=== PATIENT | female | born 1995 | race Caucasian/White ===

== ENCOUNTER 2017-06-22 13:42 | Emergency (ER) | payer BC, OTHER ==
[2017-06-22 14:45] VITALS: BP 128/73
[2017-06-22] MEDS ORDERED: predniSONE TAB* 20 MG PO ONE (15:41)
--- NOTE | 2017-06-22 15:43 | UC ---
Skin Complaint HPI - HPI Summary HPI Summary: 22 female presents to with complaints of breaking out in hives over chest, neck trunk last night and again this morning. Patient states she took Benadryl last night and again this morning after breaking out in hives and it did resolve. States she was also very itchy. Denies chest tightness and trouble breathing. Denies new soaps, lotions, foods, medications and no new immunizations. Patient does not know what possibly could have caused allergic reaction. Denies known bug bites. Patient states she has had recent random hives /allergic reaction to random foods and pets that she has not had allergies to in the past. Denies being around any new animals. No other complaints. Urticaria is currently gone, only mild redness and scratch evans. No other complaints. Denies PMHx. - History of Current Complaint Chief Complaint: Ras Time Seen by Provider: 06/22/17 15:03 Stated Complaint: HIVES Hx Obtained From: Patient Hx Last Menstrual Period: "I don't technically get on the control that I' m on." ?: No Onset/Duration: Sudden Onset, Resolved Skin Exposure Onset/Duration: Hours Ago Onset Severity: Moderate Current Severity: None Pain Intensity: 0 Pain Scale Used: 0-10 Numeric Location: Discrete - trunk, chest, neck Character: Swelling, Pruritus, Hives, Redness Aggravating Factor(s): Nothing - unknown Alleviating Factor(s): Treatment [employer]WE[employer]ATOR: - benadryl Associated Signs & Symptoms: Positive: Rash - urticaria. Negative: Drainage, Bruising, Red Streaks - Allergy/Home Medications Allergies/Adverse Reactions: Allergies Allergy/AdvReac Type Severity Reaction Status Date / Time Apple Allergy Hives Verified 06/22/17 14:42 almonds Allergy Hives Uncoded 06/22/17 14:42 Home Medications: Home Medications Amphetamine-Dextroamphetamine [Adderall 5 mg-] 2 - 3 tab PO BID 06/22/17 [ History Confirmed 06/22/17] Norethin Acet & Estrad-Fe [Junel Fe 10/01 1-20 mg-Mcg] 1 tab PO DAILY 06/22/17 [ History Confirmed 06/22/17] diPHENhydraMINE PO* [Benadryl PO 25 MG TAB*] 25 - 50 mg PO Q6H PRN 06/22/17 [ History Confirmed 06/22/17] Review of Systems Constitutional: Negative Skin: Rash ENT: Negative Respiratory: Negative Cardiovascular: Negative Gastrointestinal: Negative All Other Systems Reviewed And Are Negative: Yes PMH/Surg Hx/FS Hx/Imm Hx - Additional Past Medical History Additional PMH: Denies DM, HTN and asthma - Surgical History Surgical History: Yes Surgery Procedure, Year, and Place: Left Bunionectomy with Hardware, 2016; Stem Cell [place], 2008 - Social History Alcohol Use: Occasionally Substance Use Type: None Smoking Status (MU): Never Smoked Tobacco - Immunization History Most Recent Influenza Vaccination: Not the Season Physical Exam Triage Information Reviewed: Yes Appearance: Well-Appearing, No Pain Distress, Well-Nourished Vital Signs: Initial Vital Signs Temp 98.4 F 06/22/17 14:38 Pulse 66 06/22/17 14:38 Resp 16 06/22/17 14:38 BP 128/73 06/22/17 14:38 Pulse Ox 100 06/22/17 14:38 Vital Signs Reviewed: Yes Eyes: Positive: Conjunctiva Clear ENT: Positive: Normal ENT inspection, Pharynx normal, TMs normal Neck: Positive: Supple, Nontender, No Lymphadenopathy Respiratory: Positive: Chest non-tender, Lungs clear, Normal breath sounds, No respiratory distress, No accessory muscle use Cardiovascular: Positive: RRR, No Murmur, Pulses Normal, Brisk Capillary Refill Abdomen Description: Positive: Nontender Bowel Sounds: Positive: Present Musculoskeletal: Positive: Strength Intact, ROM Intact Neurological: Positive: Alert Skin: Positive: Other - some erythema over chest and posterior upper back/neck, with scratch evans. no obvious urticaria evident currently, however patient took benadryl [employer]. pictures on cellphone of rash are clearly urticaric in nature Course/Dx - Course Course Of Treatment: unknown etiology causing urticaria, patient not currently symptomatic however does show urticaria on cellphone pictures of last night and this mornings rash before benadryl. allergen unknown. continue use of benadryl at bedtime and only as needed throughout day. prednisone first dose given here, continue x 4 days at home. also recommended antihistamine daily as she has had allergic like reactions in the past. follow up pcp. return if persist or worsen. aware of worsening signs and symptoms to watch out for. - Differential Diagnoses - Skin Complaint Differential Diagnoses: Cellulitis, Local Allergic Reaction, Urticaria, Viral Exanthem - Diagnoses Provider Diagnoses: urticaria Discharge - Discharge Plan Condition: Improved Disposition: HOME Prescriptions: predniSONE TAB* [Deltasone TAB*] 20 mg PO DAILY #4 tab Patient Education Materials: Urticaria (ED) Referrals: Non Staff,Doctor [Primary Care Provider] - Additional Instructions: Continue taking benadryl at bedtime. You may also take one during the day if you feel the need. Take prescribed steroid, in the morning as directed, starting tomorrow. You already had today's dose. Also recommend taking antihistamine such as zyrtec, xyzal or claritin daily to help with allergic symptoms you have been experiencing. Increase fluid intake. Try and keep a diary on soaps, foods, medications, etc that cause rash if able. Follow up with PCP. Return if symptoms worsen or do not improve.
== END 2017-06-22 15:49 | disposition home or self-care (01) ==
LOC: UCCORT 13:42
DX: L50.9 Urticaria, unspecified (principal); Z91.018 Allergy to other foods
CPT/HCPCS: 99202; G0463; J7512